=== PATIENT | male | born 1965 | race Caucasian/White ===

== ENCOUNTER 2021-02-27 12:30 | Emergency (ER) | payer OTHER ==
[2021-02-27 13:31] LABS: BASOPHIL 0.6 % (0-2); EOSINOPHIL 1.1 % (0-5); HCT 45.2 % (42.0-52.0); HGB 14.9 g/dl (13.2-18.0); LYMPHOCYTE 23.1 % (15-48); MCV 87.9 fL (78.0-100.0); MONOCYTE 5.1 % (0-12); MPV 11.5 fL (6.0-9.5); NEUTROPHIL 69.8 % (41-80); NRBC 0; PLT 223 K/uL (150-400); RBC 5.14 M/uL (4.70-6.00); RDW 13.6 % (11.5-14.0); WBC 6.5 K/uL (4.0-10.5)
[2021-02-27 14:06] LABS: ALBUMIN 3.8 g/dL (3.4-5.0); BILIRUBIN - TOTAL 0.6 mg/dL (0.2-1.0); BUN/CREAT RATIO (CALC) 18.8 RATIO; CREATININE 0.69 mg/dL (0.67-1.17); GLOBULIN (CALCULATION) 3.5 g/dL; POTASSIUM 4.1 mmol/L (3.5-5.1); TOTAL PROTEIN 7.3 g/dL (6.4-8.2)
[2021-02-27 14:31] LABS: CORONAVIRUS 2019 SARS-COV-2 NEGATIVE (NEGATIVE); INFLUENZA A NAA NEGATIVE (NEGATIVE)
== END 2021-02-27 17:15 | disposition home or self-care (01) ==
LOC: FER 12:30
PROVIDERS: Internal Medicine
DX: R07.89 Other chest pain (principal); R06.09 Other forms of dyspnea; F17.210 Nicotine dependence, cigarettes, uncomplicated; Z20.822 Contact with and (suspected) exposure to COVID-19
CPT/HCPCS: 36415; 70450; 71045; 80053; 84443; 84484; 85025; 93005; J7030; U0002